=== PATIENT | female | born 1995 | race Caucasian/White ===

== ENCOUNTER 2021-06-27 09:56 | Inpatient (IN) ==
[2021-06-27] MEDS ORDERED: Lactated Ringers 1000 ml BAG 1,000 ML IV ONE (10:50)
[2021-06-27] MEDS ORDERED: Dinoprostone 10 MG VAG.SUPP VAGINAL ONE (10:50)
[2021-06-27] MEDS ORDERED: Buffered Lidocaine 1% SYRIN 1 ml INTRADERM ONE (10:50)
[2021-06-27] MEDS ORDERED: Lactated Ringers 1000 ml BAG 1,000 ML IV SCH (11:00)
[2021-06-27 11:34] LABS: ABS Lymphocytes 1.4 10^3/ul (1.0-4.8); ABS Monocytes 0.4 10^3/ul (0-0.8); ABS Neutrophils 6.6 10^3/ul (1.5-7.7); Eosinophil % 0.4 %; Hematocrit 34 % (35-47); Hemoglobin 11.7 g/dL (12.0-16.0); Lymphocyte % 16.2 %; Mean Corpuscular HGB Conc 35 g/dL (31-36); Mean Corpuscular Hemoglobin 32 pg (27-31); Mean Corpuscular Volume 91 fL (80-97); Mean Platelet Volume 7.9 fL (7.4-10.4); Platelet Count 196 10^3/uL (150-450); Red Blood Count 3.67 10^6 /uL (3.70-4.87); Red Cell Distribution Width 14 % (10-15); White Blood Count 8.4 10^3/uL (3.5-10.8)
[2021-06-27 12:10] LABS: Urine Benzodiazepine Screen None Detected (None Detect); Urine Cannabinoids Screen None Detected (None Detect); Urine Opiates Screen None Detected (None Detect)
[2021-06-28] MEDS ORDERED: Morphine 10 MG/ML VIAL (1 ml) IV ONE (04:10)
[2021-06-28] MEDS ORDERED: OBEPIDURAL 0 ML EPIDURAL ONE (04:26)
[2021-06-28] MEDS ORDERED: Oxytocin in LR 20 UNITS/1,000 ML BAG IVPB ONE (04:54)
[2021-06-28] MEDS ORDERED: Dibucaine 1% OINT 28.35 GM TUBE PR PRN (05:42)
[2021-06-28] MEDS ORDERED: Glycerin ADULT 2.4 gm SUPP PR PRN (05:42)
[2021-06-28] MEDS ORDERED: Witch Hazel PAD JAR TOPICAL PRN (05:42)
[2021-06-28] MEDS ORDERED: Lidocaine 1% VIAL 10 MG/ML VIAL ONE (05:48)
[2021-06-28] MEDS ORDERED: Lactated Ringers 1000 ml BAG 1,000 ML IV SCH (06:00)
[2021-06-28] MEDS ORDERED: Oxytocin in LR 20 UNITS/1,000 ML BAG IVPB SCH (06:00)
[2021-06-29 08:21] LABS: ABS Eosinophils 0.1 10^3/ul (0-0.6); ABS Lymphocytes 1.7 10^3/ul (1.0-4.8); ABS Monocytes 0.5 10^3/ul (0-0.8); ABS Neutrophils 7.5 10^3/ul (1.5-7.7); Eosinophil % 0.8 %; Hematocrit 27 % (35-47); Hemoglobin 9.4 g/dL (12.0-16.0); Lymphocyte % 17.6 %; Mean Corpuscular HGB Conc 34 g/dL (31-36); Mean Corpuscular Hemoglobin 32 pg (27-31); Mean Corpuscular Volume 92 fL (80-97); Mean Platelet Volume 7.7 fL (7.4-10.4); Platelet Count 169 10^3/uL (150-450); Red Blood Count 2.97 10^6 /uL (3.70-4.87); Red Cell Distribution Width 14 % (10-15); White Blood Count 9.9 10^3/uL (3.5-10.8)
[2021-06-30 08:58] VITALS: BP 100/60
== END 2021-06-30 11:10 | disposition home or self-care (01) | DRG 560 ==
LOC: MCHOBOUT 09:56 → MCHOB 10:39
PROVIDERS: ADMIT Obstetrics & Gynecology; ATTEND Obstetrics & Gynecology

== ENCOUNTER 2024-03-02 20:39 | Inpatient (IN) ==
[2024-03-02] MEDS: Penicillin G Potassium IV 5,000,000 UNITS in NS 0.9% 100 ML BAG IVPB ONE (22:38)
[2024-03-02 22:45] LABS: ABS Basophils 0.1 10^3/uL (0.0-0.1); ABS Eosinophils 0.1 10^3/uL (0.0-0.5); ABS Lymphocytes 1.6 10^3/uL (1.0-4.8); ABS Monocytes 0.6 10^3/uL (0.0-0.9); ABS Neutrophils 8.3 10^3/uL (1.5-7.6); Eosinophil % 0.8 %; Hemoglobin 12.1 g/dL (11.5-14.3); Lymphocyte % 15.1 %; Mean Corpuscular Hemoglobin 31.1 pg (27-33); Mean Corpuscular Hgb Conc 35.6 g/dL (31-36); Mean Corpuscular Volume 87.3 fL (80-97); Platelet Count 245 10^3/uL (150-450); Red Cell Distribution Width 13.8 % (12-17); White Blood Count 10.6 10^3/uL (3.8-11.8)
[2024-03-02] MEDS ORDERED: Lidocaine 1% VIAL 10 MG/ML 30 ML VIAL INJ PRN (22:56)
[2024-03-02] MEDS: Lactated Ringers 1000 ml BAG 1,000 ML IV ONE (23:06)
[2024-03-02] MEDS: Buffered Lidocaine 1% SYRIN 1 ml INTRADERM ONE (23:06)
[2024-03-03] MEDS: Penicillin G Potassium IV 3,000,000 UNITS in NS 0.9% 100 ml BAG 100 ML IVPB SCH ×2 (00:16→03:49)
[2024-03-03 00:26] LABS: Urine Benzodiazepine Screen None Detected (None Detect); Urine Cannabinoids Screen None Detected (None Detect); Urine Opiates Screen None Detected (None Detect)
[2024-03-03] MEDS: Lactated Ringers 1000 ml BAG 1,000 ML IV SCH (01:32)
[2024-03-03] MEDS: Oxytocin in LR 20,000 MILLI.UNIT/1,000 ML BAG IV SCH (02:05)
[2024-03-03] MEDS ORDERED: Glycerin ADULT 2.4 gm SUPP PR PRN (02:19)
[2024-03-03] MEDS: Oxytocin in LR 20,000 MILLI.UNIT/1,000 ML BAG IV ONE (02:27)
[2024-03-03] MEDS ORDERED: Lactated Ringers 1000 ml BAG 1,000 ML IV SCH (03:00)
[2024-03-03] MEDS: Witch Hazel PAD JAR TOPICAL PRN (03:56)
[2024-03-03] MEDS: Dibucaine 1% OINT 28.35 GM TUBE PR PRN (03:56)
[2024-03-04 07:13] LABS: ABS Eosinophils 0.1 10^3/uL (0.0-0.5); ABS Lymphocytes 2.3 10^3/uL (1.0-4.8); ABS Monocytes 0.5 10^3/uL (0.0-0.9); ABS Neutrophils 7.1 10^3/uL (1.5-7.6); Eosinophil % 1.2 %; Hematocrit 27.6 % (35-45); Hemoglobin 9.8 g/dL (11.5-14.3); Lymphocyte % 22.8 %; Mean Corpuscular Hemoglobin 31.1 pg (27-33); Mean Corpuscular Hgb Conc 35.3 g/dL (31-36); Mean Platelet Volume 7.8 fL (7.5-11.2); Platelet Count 211 10^3/uL (150-450); Red Blood Count 3.14 10^6/uL (3.63-4.92)
[2024-03-05 07:53] VITALS: BP 98/69
== END 2024-03-05 12:23 | disposition home or self-care (01) | DRG 560 ==
LOC: MCHOBOUT 20:39 → MCHOB 23:13
PROVIDERS: ADMIT Obstetrics & Gynecology; ATTEND Obstetrics & Gynecology